=== PATIENT | male | born 1990 | race Caucasian/White ===

== ENCOUNTER 2023-11-20 11:11 | Emergency (ER) | payer OTHER, SELFPAY ==
--- NOTE | ~2023-11-20 | XR_ITS ---
XR_[id number] DATE: 11/20/2023 11:56 INDICATION: Neck pain, left shoulder pain. TECHNIQUE: AP, open-mouth, odontoid, lateral views COMPARISON: None FINDINGS: C1 and C2 are normally aligned and the odontoid process is intact. Mild degenerative disc disease at C4-5 with mild anterior and posterior spurring. The cervical spaces otherwise appear well preserved. No fracture or dislocation or locked facet or prevertebral soft tissue swelling. There is mild degenerative change at the uncovertebral joints at C4-5. IMPRESSION: Mild degenerative disc disease and uncovertebral joint spurring at C4-5 Reviewed, dictated and finalized at [facility]. Reviewed, dictated and finalized at [facility].
--- NOTE | ~2023-11-20 | XR_ITS ---
XR shoulder LT min 2V DATE: 11/20/2023 11:57 INDICATION: Left shoulder pain TECHNIQUE: 4 views COMPARISON: None FINDINGS: No fracture or dislocation, periosteal reaction or bone destruction or abnormal soft tissue calcification of the left shoulder. IMPRESSION: Negative Reviewed, dictated and finalized at [facility]. IMPRESSION: Negative
[2023-11-20 11:24] VITALS: BP 137/80; PULSE 93; RESP 20; TEMP 37.1; O2SAT 100
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
[2023-11-20 11:30] VITALS: BP 137/80; PULSE 93; RESP 20; TEMP 37.1; O2SAT 100
== END 2023-11-20 12:25 | disposition home or self-care (01) ==
PROVIDERS: Emergency Provider Nurse Practitioner Family
DX: M54.12 Radiculopathy, cervical region (principal)
CPT/HCPCS: 72040; 73030; 99214; G0463